=== PATIENT | male | born 1970 | race Caucasian/White ===

== ENCOUNTER 2017-04-11 20:52 | Emergency (ER) | payer BC ==
[2017-04-11 21:45] VITALS: BP 136/76
[2017-04-11] MEDS ORDERED: CIPROFLOXACIN HCL 50 DROP BTL LEFTEYE ONE (22:02)
[2017-04-11] MEDS ORDERED: CIPROFLOXACIN HCL 50 DROP BTL ONE (22:04)
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
== END 2017-04-11 22:10 | disposition home or self-care (01) ==
LOC: ER 20:52
DX: T70.0XXA Otitic barotrauma, initial encounter (principal); H72.92 Unspecified perforation of tympanic membrane, left ear; W20.8XXA Other cause of strike by thrown, projected or falling object, initial encounter